=== PATIENT | male | born 1980 | race Caucasian/White ===

== ENCOUNTER → 2020-06-04 09:30 | Outpatient (BNVA) | payer OTHER, SELFPAY | PROVIDERS: PCP Internal Medicine Geriatric Medicine; Referring Provider Internal Medicine Geriatric Medicine; Visit Provider Dietitian, Registered | DX: Z76.89 Persons encountering health services in other specified circumstances (principal) ==

== ENCOUNTER → 2020-08-01 08:06 | Outpatient (BNVA) | payer OTHER, SELFPAY | PROVIDERS: Visit Provider Dietitian, Registered | DX: E66.9 Obesity, unspecified (principal) ==

== ENCOUNTER → 2020-08-06 08:16 | Outpatient (BNVA) | payer OTHER, SELFPAY | PROVIDERS: Visit Provider Dietitian, Registered | DX: Z76.89 Persons encountering health services in other specified circumstances (principal) ==

== ENCOUNTER 2020-11-12 10:40 | Outpatient (REF) | payer OTHER, SELFPAY ==
[2020-11-12 11:39] LABS: MANUAL DIFF FLAG NO
[2020-11-12 11:56] LABS: Basophils Percent Auto 0.3 % (0-2); Eosinophils Absolute Auto 0.1 X10*3/uL (0.0-0.4); Eosinophils Percent Auto 1.2 % (0-4); Hematocrit 46.3 % (42-52); Hemoglobin 15.4 g/dl (14.0-18.0); Imm Gran Abs Auto 0.01 X10*3/uL (0.00-0.03); Imm Gran Pct Auto 0.2 % (0.0-0.4); Lymphocytes Absolute Auto 2.7 X10*3/uL (1.2-4.9); Mean Corpuscular HGB Conc 33.3 g/dl (31.0-36.0); Mean Corpuscular Hemoglobin 30.1 pg (27.0-33.0); Mean Corpuscular Volume 90.4 fL (80-98); Mean Platelet Volume 9.9 fL (9.4-12.4); Monocytes Absolute Auto 0.5 X10*3/uL (0.1-1.2); Monocytes Percent Auto 7.5 % (2-11); Neutrophils Absolute Auto 3.3 X10*3/uL (2.0-8.3); Neutrophils Percent Auto 49.8 % (45-73); Platelet Count 288 X10*3/uL (160-400); Red Blood Count 5.12 X10*6/uL (4.60-5.80); White Blood Count 6.5 X10*3/uL (4.8-10.8)
[2020-11-12 12:39] LABS: Alanine Aminotransferase 22 U/L (0-40); Albumin Level 4.8 g/dL (3.5-5.0); Alkaline Phosphatase 68 U/L (39-117); Anion Gap 14 (12-20); Aspartate Amino Transferase 31 U/L (5-37); Blood Urea Nitrogen 28 mg/dL (9-16); C Reactive Protein 0.28 mg/dL (< or = 0.50); Calcium 9.4 mg/dL (8.4-10.2); Carbon Dioxide 28 mmol/L (22-29); Chloride 106 mmol/L (96-108); Cholesterol 157 mg/dL; Estimated Glomerular Filt Rate > 60; Glucose Random 94 mg/dL (60-115); HDL Cholesterol 51 mg/dL; Iron 119 mcg/dL (45-160); LDL Cholesterol Calculated 99 mg/dl; Percent Iron Saturation 35 % (15-50); Potassium 4.8 mmol/L (3.3-5.1); Sodium 143 mmol/L (135-145); Total Iron Binding Capacity 338 mcg/dL (228-428); Total Protein 7.3 g/dL (6.5-8.0); Triglycerides 35 mg/dL; Unsaturated Iron Binding 219 ug/dL
[2020-11-12 12:42] LABS: Ferritin 225 ng/mL (20-250); TSH reflex Free T4 0.55 uIU/mL (0.32-4.0); Vitamin B12 1319 pg/mL (200-900); Vitamin D 25-OH Total 32.5 ng/mL (>30)
[2020-11-12 13:15] LABS: Estimated Average Glucose 105 mg/dL; Hemoglobin A1C 135.0235 umol/L; Hemoglobin A1c % 5.3 %
[2020-11-13 17:27] LABS: Insulin Level Total 7.8 uIU/mL
[2020-11-13 18:41] LABS: Calcium (PTHI) 9.8 mg/dL (8.6-10.3); PTHI 26 pg/mL (14-64)
[2020-11-15 01:21] LABS: Zinc 82 mcg/dL (60-130)
[2020-11-16 11:16] LABS: Vitamin B1 8 nmol/L (8-30)
[2020-11-16 23:11] LABS: Vitamin A 36 mcg/dL (38-98)
== END 2020-11-12 10:41 | disposition home or self-care (01) ==
LOC: HO.LAB 10:40
PROVIDERS: Visit Provider Physician Assistant
DX: K90.49 Malabsorption due to intolerance, not elsewhere classified (principal)
CPT/HCPCS: 36415; 80053; 80061; 82306; 82607; 82728; 82746; 83036; 83525; 83540; 83970; 84425; 84443; 84590; 84630; 85025; 86140

== ENCOUNTER → 2020-11-25 08:09 | Outpatient (BNVA) | payer OTHER, SELFPAY | PROVIDERS: Visit Provider Physician Assistant ==

== ENCOUNTER → 2020-12-10 12:24 | Outpatient (BNVA) | payer OTHER, SELFPAY | PROVIDERS: Visit Provider Physician Assistant ==